=== PATIENT | female | born 1960 | race Two or more races ===

== ENCOUNTER 2024-10-05 17:05 | Emergency (ER) | payer MEDICAID, OTHER ==
[~2024-10-05] VITALS: Ht 160 cm; Wt 68.9 kg
[2024-10-05 18:37] VITALS: BP 108/70; PULSE 109; RESP 16; TEMP 97.6; O2SAT 96
[2024-10-05] MEDS: OXYCODONE W/ ACETAMINOPHEN 5/325MG TABLET PO ONE (19:43)
[2024-10-05] MEDS: LET TOPICAL SOLN 5 ML TOP ONE (20:03)
[2024-10-05] MEDS: LIDOCAINE 1% HCL (LOCAL ANESTH.) INJ 20ML MDV ID ONE (20:19)
[2024-10-05] MEDS: TETANUS-DIPTH-ACEL PERTUSSIS 0.5ML SYR Tdap IM ONE (20:59)
[2024-10-05] MEDS ORDERED: AUG875T PO (21:01)
--- NOTE | 2024-10-05 21:02 | ED.PDOC ---
Mult. trauma (HPI) HPI Comments pt reports being attacked by her own dog (sur[place]e [place]) due to trying to protect from stray digs, noted x 12 punture wounds to right arm and hand, puncture eould to lip and face and left thumb. applied clean dressing to sites. pt tolerated well Chief Complaint: Animal Bite Time Seen by MD: 17:53 Primary Care Provider: elise Becker notes: Nurses Notes, Medications, Allergies Allergies: Coded Allergies: NO KNOWN ALLERGIES (Unverified , 10/05/24) Home Meds Active Scripts Amoxicillin & Pot Clavulanate (AUGMENTIN TABLET) 875 Mg Tb, 875 MG PO BID for 7 Days, #14 TAB Prov:KEVIN CONLEY [employer] 10/05/24 Information Source: Patient Mode of Arrival: Ambulatory Past Medical History PAST MEDICAL HISTORY: Denies Surgical History: Denies all surgeries FACILITIES MAINTENANCE MANAGER History: No Pertinent FACILITIES MAINTENANCE MANAGER History Family History Family History: Reviewed,noncontributory to illness Social History Smoker: Non-Smoker Alcohol: Denies ETOH Use Drugs: Denies Drug Use Constitutional: denies: chills, diaphoresis, fatigue, fever, malaise, sweats, weakness, others EENTM: denies: blurred vision, double vision, ear bleeding, ear discharge, ear drainage, ear pain, ear ringing, eye pain, eye redness, hearing loss, mouth pain, mouth swelling, nasal discharge, nose bleeding, nose congestion, nose pain, photophobia, tearing, throat pain, throat swelling, voice changes, others Respiratory: denies: cough, hemoptysis, orthopnea, SOB at rest, shortness of breath, SOB with excertion, stridor, wheezing, others Cardiovascular: denies: chest pain, dizzy spells, diaphoresis, Dyspnea on exertion, edema, irregular heart beat, left arm pain, lightheadedness, palpitations, PND, syncope, others Gastrointestinal: denies: abdomen distended, abdominal pain, blood streaked bowels, constipated, diarrhea, dysphagia, difficulty swallowing, hematemesis, melena, nausea, poor appetite, poor fluid intake, rectal bleeding, rectal pain, vomiting, others Genitourinary: denies: abnormal vagina bleeding, burning, dyspareunia, dysuria, flank pain, frequency, hematuria, incontinence, pain, , vagina discharge, urgency, others Neurological: denies: dizziness, fainting, headache, left sided numbness, left sided weakness, numbness, paresthesia, pre-existing deficit, right sided numbness, right sided weakness, seizure, speech problems, tingling, tremors, weakness, others Musculoskeletal: denies: back pain, gout, joint pain, joint swelling, muscle pain, muscle stiffness, neck pain, others Integumetry: reports: wounds (Puncture wounds to right forearm , laceration to top lip laceration to right hand 4th and 5th finger); denies: bruises, change in color, change in hair/nails, dryness, laceration, lesions, lumps, rash, others Allergic/Immunocompromised: denies: Difficulty Healing, Frequent Infections, Hives, Itching, others Hematologic/Lymphatic: denies: anemia, blood clots, easy bleeding, easy bruising, swollen glands, others Endocrine: denies: excessive hunger, excessive sweating, excessive thirst, excessive urination, flushing, intolerance to cold, intolerance to heat, unexplained weight gain, unexplained weight loss, others Psychiatric: denies: anxiety, bipolar disorder, depression, hopeless, panic disorder, schizophrenia, sleepless, suicidal, others Physical Exam General Appearance: No Apparent Distress, Normal HEENT: Normal ENT Inspection, Pharynx Normal Neck: Full Range of Motion, Non-Tender Respiratory: Lungs Clear, No Respiratory Distress, Normal Breath Sounds Cardiovascular: No Murmur, Normal Peripheral Pulses, Regular Rate/Rhythm Breast Exam: Deferred Gastrointestinal: Non Tender, Soft Genitalia: Deferred Pelvic: Deferred Rectal: Deferred Extremities: Normal capillary refill, Normal inspection, Normal range of motion, Non-tender, No pedal edema Musculoskeletal : Apperance: Normal Neurologic: Alert, equalizer operator II-XII nml as Tested, No Motor Deficits, Normal Affect, Normal Mood, No Sensory Deficits Cerebellar Function: Normal Reflexes: Normal Skin: Dry, Normal Color, Warm, Wounds (1/2 inch laceration upper lip inside muc jany. 0.5 cm laceration to right 4th digit middle phalanx anterior aspect bleeding controlled noted fat exposed) Lymphatic: No Adenopathy Was a procedure done? Was a procedure done?: Yes Sedation Sedation?: No Informed consent obtained: Yes Laceration Repair : Location Upper lip inside mucosa and right hand 4th finger Length 2 cm Anesthetic: LET, Without epi, Digital nerve block (Right hand 4th finger) Laceration Repair Prep: Saline Laceration Repair Wound Comple: epidermis/dermis repair Laceration Repair: Number of sutures (8 absorbing sutures upper lip. 4 sutures to right hand 4th finger) Informed consent obtained: Yes Risks, benefits, and alternati: Yes Notes Patient tolerated well minimal blood loss Differential Diagnosis Multiple Trauma: Fractures, Vascular Injury, Foreign Body X-Ray, Labs, Meds, VS Vital Signs Date Time Temp Pulse Resp B/P (MAP) Pulse Ox O2 Delivery O2 Flow Rate FiO2 10/05/24 18:37 109 16 96 Room Air 10/05/24 18:37 97.6 109 16 108/70 (83) 96 97.6 10/05/24 18:20 97.6 109 16 108/70 (83) 96 97.6 Current Medications Medications (Trade) Dose Ordered Sig/Emilio Route Start Time Stop Time Status Last Admin Oxycodone/ Acetaminophen (Percocet 5/ 325MG Tablet) 2 tab ONCE ONCE PO 10/05/24 19:45 10/05/24 19:46 DC 10/05/24 19:43 Tetracaine/ Epinephrine/ Lidocaine 5 ml ONCE ONCE TOP 10/05/24 20:00 10/05/24 20:01 DC 10/05/24 20:03 Diphtheria/ Tetanus/Acell Pertussis (Boostrix T-Dap) 0.5 ml ONCE ONCE IM 10/05/24 21:00 10/05/24 21:01 DC 10/05/24 20:59 X-Ray, Labs, Meds, VS Comment See Procedure note. Script prophylactic antibiotics to patient's pharmacy. Advised patient suture removal within 5-7 days on her finger. Sutures used upper lip inside mucosa advised on warm salt water swishes several times a day. Advised to follow up with her PCP in 1-2 days for wound re-evaluation. Taking antibiotics as prescribed side effects discussed. [id number] Tylenol or Motrin as needed for the pain per labeled dosing instructions. ER return precautions for increasing pain, signs and symptoms of infection, or uncontrolled bleeding. Patient indicates understanding and agrees with discharge plan of care. Time of 1ST Reevaluation: 20:58 Reevaluation 1ST: Improved Patient Education/Counseling: Diagnosis, Treatment, Prognosis, Need For Follow Up Family Education/Counseling: No Family Present Departure 1 Departure Time of Disposition: 20:59 Impression: Primary Impression: Dog bite of multiple sites Additional Impression: Laceration of lip Qualified Codes: S01.511A - Laceration without foreign body of lip, initial encounter Disposition: HOME / SELF CARE / HOMELESS Condition: Stable Additional Instructions: Keep wrapped for 48 hours suture removal on right hand ring finger within 5-7 days follow up with your PCP in 2 days for wound re-evaluation ER return precautions for uncontrolled bleeding or signs and symptoms of infection e-Prescriptions Amoxicillin & Pot Clavulanate (AUGMENTIN TABLET) 875 Mg Tb 875 MG PO BID for 7 Days, #14 TAB Prov: KEVIN CONLEY 10/05/24 Discharged With: Self Critical Care Note Critical Care Time?: No Stability Stability form required: KEVIN Phan Oct 05, 2024 21:02
== END 2024-10-05 21:20 | disposition home or self-care (01) ==
LOC: ER 17:05
DX: S61.411A Laceration without foreign body of right hand, initial encounter (principal); S01.511A Laceration without foreign body of lip, initial encounter; W54.0XXA Bitten by dog, initial encounter; Y93.89 Activity, other specified; Y92.89 Other specified places as the place of occurrence of the external cause; Y99.8 Other external cause status
CPT/HCPCS: 12001; 12011; 90471; 90715; 99283; J2003